=== PATIENT | male | born 1985 ===

== ENCOUNTER 2021-03-25 09:56 | Outpatient (REF) | payer MEDICAID, SELFPAY | END 2021-03-25 09:57 | disposition home or self-care (01) | LOC: HO.LAB 09:56 | PROVIDERS: Visit Provider Internal Medicine | DX: Z20.822 Contact with and (suspected) exposure to COVID-19 (principal) | CPT/HCPCS: C9803; U0003; U0005 ==

== ENCOUNTER 2021-05-22 07:32 | Outpatient (REF) | payer MEDICAID, SELFPAY ==
[2021-05-22 08:44] LABS: Binax Internal Control QC Valid; Binax Now Covid-19 Ag Negative (Negative)
== END 2021-05-22 07:33 | disposition home or self-care (01) ==
LOC: HO.LAB 07:32
PROVIDERS: Visit Provider Internal Medicine
DX: Z20.822 Contact with and (suspected) exposure to COVID-19 (principal)
CPT/HCPCS: C9803

== ENCOUNTER 2023-02-13 23:07 | Emergency (ER) | payer MEDICAID, SELFPAY ==
--- NOTE | ~2023-02-13 | XR_ITS ---
EXAMINATION: XR LUMBOSACRAL SPINE CLINICAL INFORMATION: Pain COMPARISON: None available. TECHNIQUE: Three views of the lumbosacral spine. FINDINGS: The vertebral bodies and posterior elements are normal. There is mild/early lumbar disc degenerative change with mild endplate sclerosis and minimal osteophyte formation. There is no fracture. The paraspinal soft tissues are normal. XR/XR lumbar spine 2-3V IMPRESSION: Mild/early lumbar disc degenerative change. No fracture or malalignment.
[2023-02-13 23:55] VITALS: BMI 34.7
[2023-02-14 00:05] VITALS: BP 125/84; PULSE 97; RESP 16; TEMP 37.3; O2SAT 96
--- NOTE | 2023-02-14 00:06 | ED.FALL ---
HPI - Fall General Chief Complaint: Fall Stated Complaint: Fall Time Seen by Provider: 02/14/23 00:06 Source: patient Mode of arrival: ambulatory Limitations: no limitations History of Present Illness HPI Narrative: Patient came after mechanical fall happened at 18:00 going downstairs missed a step fell about 4 steps coming of pain all over this patient's lower back no loss of consciousness no significant head injury or any blood since Related Data Previous Rx's Medication Instructions Recorded cyclobenzaprine 10 mg tablet 10 mg PO Q8H #20 tabs 02/14/23 ibuprofen 600 mg tablet 600 mg PO Q6H PRN fever or pain 02/14/23 #30 tabs Allergies Allergy/AdvReac Type Severity Reaction Status Date / Time No Known Allergies Allergy Unverified 01/12/20 19:22 [No Known Allergies*] Review of Systems Review of Systems: Yes all other systems are reviewed and are negative [facility] Social History Social History Smoked in Last 30 Days: No Advance Directives: No Advance Directives Information Provided: Yes Physical Exam Vital Signs: Vital Signs: Last Vital Signs Temp 99.1 F 02/14/23 00:05 Pulse 97 02/14/23 00:05 Resp 16 02/14/23 00:05 BP 125/84 02/14/23 00:05 Pulse Ox 96 02/14/23 00:05 O2 Del Method Room Air 02/14/23 00:05 BMI result Body Mass Index 34.7 Appearance: Alert. Oriented X3. No acute distress. Eyes: PERRLA, No Nystagmus ENT: Pharynx normal. Oral Mucosa moist AT NC Neck: Normal inspection. Neck supple. CVS: Normal heart rate and rhythm. Pulses normal. Respiratory: No respiratory distress. Equal air entry bilateral, no wheezing/rales/rhonchi Abdomen: Soft and nontender. Bowel sounds are present, no mass palpable, no CVA tenderness back: Diffuse tenderness lumbar area no focal spinal tenderness Skin: Skin warm and dry. Normal skin color. Normal skin turgor. Extremities: No lower extremity edema. No calf tenderness Neuro: Oriented X 3. No motor deficit. No sensory deficit.No cerebellar signs , cranial nerves II-XII intact Medications Administered Discontinued Medications Generic Name Dose Route Start Last Admin Trade Name Freq PRN Reason Stop Dose Admin Cyclobenzaprine HCl 10 mg 02/14/23 00:21 02/14/23 00:40 Cyclobenzaprine Hcl 10 Mg Tablet PO 02/14/23 00:22 10 mg ONCE ONE Administration Morphine Sulfate 15 mg 02/14/23 00:21 02/14/23 00:40 Morphine Sulfate Immed Release 15 Mg Tablet PO 02/14/23 00:22 15 mg ONCE ONE Administration Medical Decision Making Medical Decision Making MDM Narrative: Lumbar spine x-ray negative for acute fracture patient's symptoms likely from muscle spasm secondary to fall discharge patient home on pain management and muscle relaxer Differential Diagnosis Differential Diagnoses: The differential diagnosis associated with the presentation includes Lumbar spine fracture/muscle strain/mechanical fall Radiology Impression Discussion of test interpretation with radiology: I have reviewed the radiologist's reading. Discharge Plan Discharge Clinical Impression: Lumbar spine strain Patient Disposition: Home, Self-Care Instructions: Acute Low Back Pain (ED) Additional Instructions: The x-rays negative for fracture Pain medication and muscle relaxants as prescribed Apply ice pack Prescriptions: New cyclobenzaprine 10 mg tablet 10 mg PO Q8H Qty: 20 0RF ibuprofen 600 mg tablet 600 mg PO Q6H PRN (Reason: fever or pain) Qty: 30 0RF
[2023-02-14] MEDS: Cyclobenzaprine HCl 10 MG TABLET PO (00:40)
[2023-02-14] MEDS: Morphine Sulfate Immed Release 15 MG TABLET PO (00:40)
== END 2023-02-14 01:25 | disposition home or self-care (01) ==
PROVIDERS: Emergency Provider Internal Medicine
DX: S39.012A Strain of muscle, fascia and tendon of lower back, initial encounter (principal); X58.XXXA Exposure to other specified factors, initial encounter; Y93.9 Activity, unspecified; Y92.9 Unspecified place or not applicable; Y99.9 Unspecified external cause status
CPT/HCPCS: 72100; 99283; 99284

== ENCOUNTER 2023-02-16 10:52 | Emergency (ER) | payer MEDICAID, SELFPAY ==
--- NOTE | 2023-02-16 11:05 | ED_ITS ---
HPI - General Adult General Chief complaint: Back Pain/Injury Stated complaint: fell down stairs Time Seen by Provider: 02/16/23 13:16 Source: patient and supervisor [employer] Mode of arrival: ambulatory Limitations: language barrier History of Present Illness HPI narrative: Patient is a 37 year old assigned male at with no reported medical history presenting to the emergency department today with persistent low back pain. Patient states that he was seen for this before but the medication he was given is not helping his pain. Patient denies any dizziness, lightheadedness, abdominal pain, nausea, vomiting, fever, chills, blurry vision, double vision, loss of vision, chest pain, difficulty breathing, shortness of breath, night sweats, pain with urination, increased urinary frequency, increased urinary urgency, blood in his urine or stool, syncope or a near syncopal episode, recent trauma or falls, bowel incontinence, bladder incontinence, bowel retention, bladder retention, or any other complaints at this time. Onset (ago): day(s) Location: back Severity: mild Severity scale (1-10): 4 Quality: aching and dull Pain Consistency: constant Relieving factors: none Exacerbating factors: movement Associated symptoms: denies other symptoms Treatments prior to arrival: other (cyclobenzaprine) Related Data Previous Rx's Medication Instructions Recorded cyclobenzaprine 10 mg tablet 10 mg PO Q8H #20 tabs 02/14/23 ibuprofen 600 mg tablet 600 mg PO Q6H PRN fever or pain 02/14/23 #30 tabs Allergies Allergy/AdvReac Type Severity Reaction Status Date / Time No Known Allergies Allergy Unverified 01/12/20 19:22 [No Known Allergies*] Review of Systems Constitutional: Constitutional: Reports no additional constitutional complaints, Denies chills, Denies fever(s) and Denies night sweats Eyes: Eyes: Reports no additional eye complaints, Denies blurry vision, Denies change in vision, Denies diplopia, Denies eye discharge, Denies loss of vision and Denies eye pain ENT: Denies dizziness Cardiovascular: Cardiovascular: Reports no additional cardiovascular complaints, Denies chest pain, Denies lightheadedness, Denies Loss of Consciousness and Denies dyspnea Respiratory: Respiratory: Reports no additional respiratory complaints and Denies dyspnea Gastrointestinal: Gastrointestinal: Reports no additional gastrointestinal complaints, Denies abdominal pain, Denies melena, Denies hematochezia, Denies change in bowel habits and Denies change in stool character Genitourinary: Genitourinary: Reports no additional male genitourinary complaints, Denies hematuria, Denies oliguria, Denies difficulty urinating, Denies dysuria, Denies urinary frequency, Denies urinary hesitancy, Denies urinary incontinence and Denies urinary urgency Musculoskeletal: Musculoskeletal: Reports no additional musculoskeletal com plaints, Reports back pain, Denies numbness and Denies tingling Neurologic: Denies dizziness, Denies loss of vision, Denies numbness and Denies tingling Psychiatric: Psychiatric: Reports no additional psychiatric complaints Endocrine: Endocrine: Reports no additional endocrine complaints Hematologic/Lymphatic: Hematologic/Lymphatic: Reports no additional hematologic/lymphatic complaints Allergic/Immunologic: Allergic/Immunologic: Reports no additional allergic/immunologic complaints PMFSH Past Medical History Attestation statement: The following information was validated with the patient. Source: old records reviewed and nursing notes reviewed Social History Social History Advance Directives: No Advance Directives Information Provided: No Physical Exam ED Vital Signs: Vital Signs - 24 hr 02/16/23 11:07 Temperature 97.4 F Pulse Rate 76 Respiratory Rate 18 Blood Pressure 131/87 Pulse Oximetry 98 Oxygen Delivery Method Room Air BMI result Body Mass Index 32.9 Const General: cooperative, no acute distress, alert and awake Nutritional Appearance: well nourished Orientation/consciousness: patient oriented x3 Limitations: no limitations HENMT Head: Yes normal to inspection and Yes atraumatic Ears: hearing grossly normal bilaterally and external ears normal General nose exam: Normal external nose present, no nasal discharge noted and no epistaxis Face and sinus: Yes normal facial exam, No abrasion and No laceration Mouth: Normal oral and palatal mucosa present, no drooling and no muffled voice Eyes General: appearance normal, both eyes and all related structures Periorbital: periorbital findings normal Eyelids: Yes eyelids normal Conjunctivae: conjunctivae normal Pupils: Equal, round and reactive pupils present EOM: EOMs intact bilaterally Neck Neck: Yes normal visual inspection, Yes full ROM and Yes no lymphadenopathy Chest Chest palpation & inspection: normal inspection of the chest Resp Effort & Inspection: normal respiratory effort and able to speak in complete sentences GI Inspection: Yes normal to inspection Neuro General: patient oriented x3 and moves all extremities Cranial nerves: Yes Equal, round and reactive pupils present Cognition (Neuro): normal cognition Motor exam (neuro): 5/5 motor strength present throughout Sensory Exam: Normal double simultaneous stimulation for sensation Coordination: [id number] test normal Extrem General: Yes normal to inspection, Yes full ROM and Yes capillary refill normal Psych Appearance: grossly normal Mental Status: mental status grossly normal Affect: normal affect Attitude: cooperative Thought process: Normal thought process present Thought content: Normal thought content present Insight: Good insight present (Psych) Course Course Course Narrative: RME performed by Clara Levi PA-C. Patient is a 37 year old assigned male at presenting to the emergency department with pain after falling down a set of steps. Patient seen for same fall on 02/14/2023 where he had imaging done that was negative. Patient placed back in the waiting room pending room availability. Medical Decision Making Medical Decision Making [facility] Narrative: Patient is a 37 year old assigned male at with no reported medical history presenting to the emergency department today with low back pain. Patient's limited physical exam performed in triage was unremarkable. Patient left the dep artment without completing treatment. Patient left the department before myself or any of the other emergency department clinicians could explain physical exam findings, need or lack there of for further testing, treatment plans or treatment options. Differential Diagnosis Differential Diagnoses: The differential diagnosis associated with the presentation includes Low back pain Discharge Plan Discharge Clinical Impression: Low back pain Patient Disposition: Left W/O Completing Treatment Prescriptions: No Action cyclobenzaprine 10 mg tablet 10 mg PO Q8H Qty: 20 0RF ibuprofen 600 mg tablet 600 mg PO Q6H PRN (Reason: fever or pain) Qty: 30 0RF Discharge Date/Time: 02/16/23 13:59
[2023-02-16 11:07] VITALS: BP 131/87; PULSE 76; RESP 18; TEMP 36.3; O2SAT 98; BMI 32.9
== END 2023-02-16 13:59 | disposition left against medical advice (07) ==
LOC: HO.ED 13:49
PROVIDERS: Emergency Provider Emergency Medicine
DX: M54.50 Low back pain, unspecified (principal)
CPT/HCPCS: 99281